=== PATIENT | male | born 1985 | race American Indian/Alaskan Native ===

== ENCOUNTER 2016-06-27 12:35 | Emergency (ER) | payer OTHER ==
[2016-06-27 13:01] VITALS: BP 120/63; PULSE 55; TEMP 97.2; BMI 29.9
--- NOTE | 2016-06-27 13:19 | PDOC ---
History of Present Illness - General Chief Complaint: Injury Stated Complaint: RIGHT ANKLE PAIN Time Seen by Provider: 06/27/16 13:08 - History of Present Illness Initial Comments: 06/27/16 13:19 30-year-old male with a negative past medical history He is on no medications except for omeprazole OTC for GERD NKDA Patient states that last evening he was playing basketball He fell and rolled his right ankle, but also twisted his foot He is complaining of pain in his foot and ankle He states the pain was worse last night and better today, and states that he is able to ambulate with it wrapped in an Gary He denies any knee pain or hip pain He denies any other injury, and the remainder of the review of systems is negative Past History - Past Medical History Allergies/Adverse Reactions: Allergies Allergy/AdvReac Type Severity Reaction Status Date / Time No Known Allergies Allergy Verified 06/27/16 12:46 Home Medications: Ambulatory Orders Omeprazole 20 mg PO DAILY 06/27/16 GI Disorders: Yes Suicide Attempt (Hx): No - Psycho/Social/Smoking Cessation Hx Anxiety: No Suicidal Ideation: No Smoking Status: No Smoking History: Current every day smoker Have you smoked in the past 12 months: Yes Number of Cigarettes Smoked Daily: 10 Information on smoking cessation initiated: Yes 'Breaking Loose' booklet given: 11/17/13 Hx Alcohol Use: Yes (OCCASIONAL) Drug/Substance Use Hx: No Substance Use Type: None *Physical Exam - Vital Signs Last Vital Signs Temp Pulse Resp BP Pulse Ox 97.2 F L 55 L 15 120/63 100 06/27/16 12:45 06/27/16 12:45 06/27/16 12:45 06/27/16 12:45 06/27/16 12:45 - Physical Exam Comments: 06/27/16 13:20 Physical exam Last Vital Signs Temp Pulse Resp BP Pulse Ox 97.2 F L 55 L 15 120/63 100 06/27/16 12:45 06/27/16 12:45 06/27/16 12:45 06/27/16 12:45 06/27/16 12:45 Patient is alert and answering questions, and head is normocephalic and atraumatic Patient is ambulatory Right lower extremity- There is full range of motion of the right hip and right knee There is no right calf tenderness The right Achilles tendon is intact Right foot and ankle- There is swelling and tenderness on the lateral malleolus into the proximal lateral dorsum of the foot There is also some tenderness in the mid ankle There is no medial malleolus tenderness There is no point tenderness on the heel There is some mild diffuse tenderness on the dorsum of the foot without point tenderness The dorsalis pedis pulses intact The toes are warm with intact sensation and good capillary refill ED Treatment Course - RADIOLOGY Radiology Studies Ordered: Category Date Time Status ANKLE & FOOT-RIGHT* [RAD] Stat Radiology 06/27/16 13:17 Ordered Medical Decision Making - Medical Decision Making 06/27/16 15:07 Right foot and ankle series There is some swelling in the lateral malleolus, no acute fracture is seen There is an old avulsion (Patient states that he has sprained his ankle at least 4 times in the past) Gary, rest, elevate, orthopedics follow-up *DC/Admit/Observation/Transfer Diagnosis at time of Disposition: Strain of right ankle and foot - Discharge Dispostion Condition at time of disposition: Good - Referrals Referrals: Sai Wong MD [Primary Care Provider] - Albin Reynolds MD [Staff Physician] - Call tomorrow (orthopedics - call for appt) - Patient Instructions Additional Instructions: Gary, elevate, rest, Tylenol or Motrin for pain Please try to elevate and stay off of that ankle as much as you can for the next 2 days Follow-up with orthopedics-you are being referred to Dr. Reynolds's group-please call tomorrow for an appointment Followup with your orthopedics physician in 24-48 hours Return immediately if you worsen in any way - Post Discharge Activity Work/School Note: Back to Work
== END 2016-06-27 15:17 | disposition home or self-care (01) ==
LOC: FER 12:35
DX: S96.911A Strain of unspecified muscle and tendon at ankle and foot level, right foot, initial encounter (principal); X58.XXXA Exposure to other specified factors, initial encounter; Y93.67 Activity, basketball; Y92.310 Basketball court as the place of occurrence of the external cause
CPT/HCPCS: 73610-TC-RT; 73630-TC-RT; 99282-25